=== PATIENT | female | born 1975 | race American Indian/Alaskan Native ===

== ENCOUNTER 2019-03-20 14:57 | Emergency (ER) | payer MEDICAID ==
[~2019-03-20] VITALS: Ht 175.3 cm; Wt 86.0 kg
[2019-03-20 15:11] VITALS: BP 136/93
[2019-03-20] MEDS ORDERED: BISA-155 PO (15:46)
[2019-03-20] MEDS ORDERED: LACT10SO PO (15:46)
[2019-03-20] MEDS ORDERED: POLY119P2 PO (15:46)
[2019-03-20] MEDS ORDERED: ACYC-202 PO (16:17)
[2019-03-20] MEDS ORDERED: LINA145C PO (16:28)
== END 2019-03-20 16:32 | disposition home or self-care (01) ==
LOC: ER 14:58
DX: K59.00 Constipation, unspecified (principal); A60.04 Herpesviral vulvovaginitis; F11.90 Opioid use, unspecified, uncomplicated; Z79.2 Long term (current) use of antibiotics; Z79.899 Other long term (current) drug therapy
CPT/HCPCS: 99283